=== PATIENT | female | born 1995 | race Caucasian/White ===

== ENCOUNTER 2024-08-10 11:19 | Emergency (ER) | payer OTHER, SELFPAY ==
[2024-08-10 11:22] VITALS: BP 135/79
[2024-08-10 13:41] VITALS: BP 138/90; BMI 23.5
--- NOTE | 2024-08-10 14:34 | ED.GENMED ---
History of Present Illness
General
Chief Complaint: Breathing Problem
Time Seen by Provider: 08/10/24 14:08
History of Present Illness
History of Present Illness:
28-year-old female history of Crohn's, iron deficiency anemia currently 30 weeks presenting with worsening diffuse chest tightness and shortness of breath today. Patient states that she has had shortness of breath and chest tightness for
months. Patient states that today seem to worsen, she went to school nurse who took her blood pressure is noted to be 142/84. Patient states that she had just walked down the [place] to the nurses office when she took her blood pressure. Patient
states that she called her OB office who recommended come to the emergency department for further evaluation. Patient states that symptoms have since improved. Patient denies fever, chills, cough, vaginal bleeding, or lower extremity swelling.
Patient states that she is scheduled for an iron infusion on 08/23. Patient states that she was told she had a subchorionic hemorrhage at 5 weeks but no other complications. No history of DVT/PE.
Phy Exam
Physical Exam
Physical Exam:
General: Alert, no acute distress
Head: NCAT
Eyes: clear conjunctiva
Neck: supple
Cardiac: regular rate and rhythm, no murmur
Lungs: clear to auscultation bilaterally. No wheezes, rales, or rhonchi. Speaking full unlabored sentences. No respiratory distress.
Abdomen: soft, gravid abdomen. nontender. No rebound or guarding.
MSK: no lower extremity edema bilaterally. No deformity
Skin: warm, dry
Neuro: Alert and oriented x3. no focal deficits
Course
Orders/Labs/Results
Orders:
Orders
08/10/24 11:26
Electrocardiogram (*1) Urgent
Reason for Study: Shortness of Breath
EKG- Treatment ONCE
08/10/24 14:42
CBC/With Diff [Complete Blood Count/With Diff] Urgent
CMP [Comprehensive Metabolic Panel] Urgent
Troponin I Urgent
Abnormal Lab Results
08/10/24
14:42
RBC 3.04 L 10^6/uL
(4.20-5.40)
Hgb 9.4 L g/dL
(12.0-16.0)
Hct 26.9 L %
(37.0-47.0)
MPV 10.9 H fL
(7.4-10.4)
Abs Immat Gran (auto) 0.1 H 10^3/uL
(0-0.05)
Immature Gran % 0.7 H %
(0-0.5)
Neutrophils % 76.3 H %
(42.2-75.2)
Lymphocytes % 17.3 L %
(20.5-51.1)
Sodium 134 L mmol/L
(135-145)
BUN 5 L mg/dl
(7-17)
Creatinine 0.5 L mg/dL
(0.6-1.0)
08/10/24 14:42
08/10/24 14:42
Vital Signs
Initial and Last Documented VS:
Initial Vital Signs
Temp Pulse Resp BP Pulse Ox
97.8 F 89 16 135/79 100
08/10/24 11:22 08/10/24 11:22 08/10/24 11:22 08/10/24 11:22 08/10/24 11:22
Last Documented Vital Signs
Temp Pulse Resp BP Pulse Ox
97.8 F 77 13 138/90 100
08/10/24 13:41 08/10/24 13:41 08/10/24 13:41 08/10/24 13:41 08/10/24 13:41
MDM/Problems Addressed
Differential Diagnosis Includes:
Anemia, NSTEMI, electrolyte abnormality, related sob. Lower suspicion for PE given symptomatic for months, not tachycardic, not tachypneic, not hypoxic, no LE edema/pain.
MDM/Problems Addressed:
28-year-old female history of anemia, currently 30 weeks presenting with worsening shortness of breath and diffuse nonpleuritic chest tightness. Patient states she has had similar shortness of breath and chest tightness for months but it
seemed to worsen today. Patient says she was seen by the school nurse blood pressure was 142/84. No fever, cough, or leg swelling. On my evaluation, blood pressure 120/83. Patient is not tachycardic, 70s to 80s. SpO2 99-100% on room air.
Patient speaking full unlabored sentences. Lungs clear to auscultation. No lower extremity edema or tenderness to palpation. Patient states that she feels better. Offered CXR, pt declines. Offered ddimer/possible CTA chest r/o PE, pt declines,
states she thinks this might be related to growing and feels better knowing her blood pressure is better. Discussed with pt that possible BP elevated from walking down the hallway, no rest prior to taking BP. Does not meet criteria for
pre-eclampsia at this time given normal BP and otherwise asymptomatic. Will check basic labs, troponin r/o anemia. EKG shows NSR at 82bpm with NC 128 QTc 415 no acute ischemic changes.
Labs reviewed, hemoglobin 9.4 (baseline 9.8 per patient). Troponin, electrolytes, creatinine wnl. Discussed results with pt at bedside. Pt denies any complaints at this time. Vitals stable. Stable for discharge home with OBGYN follow up
*Critical Care Note
Total Time (30-74mins, 75-104mins- exclusive of procedures): Not Applicable
ED Attending Note
-
Portions of this chart may have been created with voice recognition software.� Occasional wrong word or��sound alike� substitutions may have occurred due to the inherent limitations of voice recognition software.
Discharge Plan
Departure
Patient Disposition: Home (Routine Discharge)
Date of Disposition: 08/10/24
Time of Disposition: 15:29
Patient with high blood pressure during this ER visit?: Yes
Discharge Problem:
Shortness of breath,
Instructions: Shortness of Breath (Dyspnea) (DC)
Referrals:
Kaley Bergman CRNP [Family Provider] -
Activity Restrictions/Additional Instructions:
Follow up with OBGYN in 1-2 days
Return to the emergency department for fever, leg swelling or new/worsening symptoms
Interventions
Interventions:
*Risk Screen - Suicide Last Done: 08/10/24 13:41
*General Assessment Last Done: 08/10/24 13:41
*Neglect/Abuse Screening Last Done: 08/10/24 13:41
*ED- Fall Risk Assessment Last Done: 08/10/24 13:41
*ED COVID-19 Vaccine History Last Done: 08/10/24 13:41
ED- Cardiac Assessment Last Done: 08/10/24 13:41
ED- Pulmonary Assessment Last Done: 08/10/24 13:41
Discharge Date and Time
Print Language: UPPER SORBIAN
[2024-08-10 14:50] LABS: % Basophils 0.4 % (0-2); % Eosinophils 0.6 % (0-6); % Immature Granulocytes 0.7 % (0-0.5); % Lymphocytes 17.3 % (20.5-51.1); % Monocytes 4.7 % (1.7-9.3); % Neutrophils 76.3 % (42.2-75.2); Absolute Immature Granulocytes 0.1 10^3/uL (0-0.05); Absolute Lymphocytes 1.2 10^3/uL (1.2-3.4); Absolute Monocytes 0.3 10^3/uL (0.1-0.6); Absolute Neutrophils 5.4 10^3/uL (1.4-6.5); Hematocrit 26.9 % (37.0-47.0); Hemoglobin 9.4 g/dL (12.0-16.0); Mean Corp Hgb Conc. 34.9 g/dL (33.0-37.0); Mean Corpuscular Hgb 30.9 pg (27.0-31.0); Mean Corpuscular Volume 88.5 fL (81.0-99.0); Mean Platelet Volume 10.9 fL (7.4-10.4); Nucleated Red Blood Cells % 0 %; Platelet Count 211 10^3/uL (130-400); Red Blood Cell Count 3.04 10^6/uL (4.20-5.40); Red Cell Dist. Width 12.7 % (11.5-14.5); White Blood Cell Count 7.1 10^3/uL (4.8-10.8)
[2024-08-10 15:00] VITALS: BP 117/80
[2024-08-10 15:03] LABS: ALT (SGPT) 15 U/L (0-35); AST (SGOT) 23 U/L (14-36); Albumin 3.8 g/dl (3.5-5.0); Alkaline Phosphatase 84 U/L (38-126); Blood Urea Nitrogen 5 mg/dl (7-17); Calcium 9.3 mg/dl (8.4-10.2); Carbon Dioxide 24 mmol/L (22-30); Chloride 105 mmol/L (98-107); Estimated Creatinine Clearance 103 ml/min; Glucose 80 mg/dl (70-99); Potassium 4.1 mmol/L (3.5-5.1); Sodium 134 mmol/L (135-145); Total Bilirubin 0.6 mg/dl (0.2-1.3); Total Protein 6.8 g/dl (6.3-8.2); eGFR > 60.00
[2024-08-10 15:15] LABS: Troponin I < 0.012 ng/ml
== END 2024-08-10 15:40 | disposition home or self-care (01) ==
LOC: EMR 11:19
PROVIDERS: EMERGENCY PHYSICIAN Emergency Medicine; FAMILY PHYSICIAN Nurse Practitioner
DX: O26.893 Other specified pregnancy related conditions, third trimester (principal); R06.02 Shortness of breath; R03.0 Elevated blood-pressure reading, without diagnosis of hypertension; Z3A.30 30 weeks gestation of pregnancy; K50.90 Crohn's disease, unspecified, without complications; D50.9 Iron deficiency anemia, unspecified
CPT/HCPCS: 99284; 80053; 84484; 85025; 93005